=== PATIENT | female | born 1990 | race American Indian/Alaskan Native ===

== ENCOUNTER 2018-12-27 14:36 | Emergency (ER) | payer SELFPAY ==
[2018-12-27 15:55] VITALS: BP 115/80
--- NOTE | 2018-12-27 15:58 | Event Note ---
ED Screening Note Date of service: 12/27/18 Time: 15:54 ED Screening Note: This is a 28 y.o. F. that presents to the ER with abdominal, nausea, and vomiting x 2 months. Reports worsening symptoms for 2 days. LMP 12/18/2018 Patient went to PCP at [facility] 3 weeks ago with copy of pelvic US and labs This initial assessment/diagnostic orders/clinical plan/treatment(s) is/are subject to change based on patients health status, clinical progression and re- assessment by fellow clinical providers in the ED. Further treatment and workup at subsequent clinical providers discretion. Patient/guardian urged not to elope from the ED as their condition may be serious if not clinically assessed and managed. Initial orders include: Labs and CT of abdomen and pelvis.
[2018-12-27 16:49] LABS: Basophils % (Auto) 0.7 % (0.0-1.8); Eosinophils % (Auto) 0.9 % (0.0-4.3); Hematocrit 37.9 % (30.3-42.9); Hemoglobin 12.3 gm/dl (10.1-14.3); Lymphocytes # (Auto) 1.5 K/mm3 (1.2-5.4); Lymphocytes % (Auto) 42.6 % (13.4-35.0); Mean Corpuscular HGB Conc 32 % (30-34); Mean Corpuscular Volume 79 fl (79-97); Monocytes # (Auto) 0.4 K/mm3 (0.0-0.8); Monocytes % (Auto) 10.6 % (0.0-7.3); Platelet Count 139 K/mm3 (140-440); Red Cell Distribution Width 15.2 % (13.2-15.2)
[2018-12-27 16:59] LABS: Bacteria,Urine 1+ /HPF (Negative); Bilirubin,Urine SM (Negative); Blood,Urine SM (Negative); Color,Urine Amber (Yellow); Mucus,Urine 3+ /HPF
[2018-12-27 17:04] LABS: Ictotest,Urine Negative (Negative)
[2018-12-27 17:22] LABS: Alanine Aminotransferase 51 units/L (7-56); Albumin 3.9 g/dL (3.9-5); BUN/Creatinine Ratio 20; Blood Urea Nitrogen 8 mg/dL (7-17); Calcium 9.3 mg/dL (8.4-10.2); Hemolysis Index 5
--- NOTE | 2018-12-27 18:45 | Emergency Department Report ---
<WOOD ANTONIO - Last Filed: 12/27/18 22:15> ED Abdominal Pain HPI - General Chief Complaint: Abdominal Pain Stated Complaint: VOMIT/STOMACH PAIN/LIVER PAIN Time Seen by Provider: 12/27/18 15:54 - Related Data Previous Rx's Medication Instructions Recorded Last Taken Type Ciprofloxacin HCl [Ciprofloxacin 500 mg PO Q12HR 3 Days #6 tab 12/27/18 Unknown Rx TAB] Allergies Allergy/AdvReac Type Severity Reaction Status Date / Time No Known Allergies Allergy Verified 12/27/18 15:53 ED Past Medical Hx - Medications Home Medications: Home Medications Medication Instructions Recorded Confirmed Last Taken Type Ciprofloxacin HCl [Ciprofloxacin 500 mg PO Q12HR 3 Days #6 tab 12/27/18 Unknown Rx TAB] ED Course - Consultations Consultation #1: 12/27/18 22:15 Case discussed with on-call GI doctor H regarding patient's symptoms and CT findings. Suggest that results could be due to chronic alcohol abuse as well versus inherited liver disorder. We will inquired further about patient's alcohol intake history. He recommends Cipro for 3-5 days and outpatient follow- up. Cassie [facility]. ED Medical Decision Making - Lab Data Result diagrams: 12/27/18 16:28 12/27/18 16:28 ED Disposition Clinical Impression: Colitis, Hepatic steatosis, Hepatomegaly, Alcohol abuse Disposition: [id number]-01 TO HOME OR SELFCARE Condition: Stable Instructions: Abdominal Pain (ED), Cirrhosis (ED), Infectious Colitis (ED) Prescriptions: Ciprofloxacin HCl [Ciprofloxacin TAB] 500 mg PO Q12HR 3 Days #6 tab Referrals: PRIMARY CARE, [Primary Care Provider] - 3-5 Days [facility] [Provider Group] - 3-5 Days <ANTON AVILES - Last Filed: 12/27/18 22:25> ED Abdominal Pain HPI - General Source: patient Mode of arrival: Ambulatory Limitations: No Limitations - History of Present Illness Initial Comments: 28-year-old -Gabonese female presents to the emergency room complaining of abdominal pain, nausea vomiting diarrhea 2 months with worsening symptoms in the last 2 days. Patient reports she is currently being evaluated by her primary care provider for liver disease. Patient reports she's had 25 pound weight loss in the last 2-1/2 months. Patient reports that her vomitus is green and her diarrhea is green. She vomited 3 times today with one loose stool. She is 0 para 0 currently takes no medications has no past medical history no known drug allergies. She is followed by [facility]. Patient denies any fever no chills. MD Complaint: abdominal pain Onset/Timin -: month(s) Location: RUQ Radiation: none Migration to: no migration Severity: moderate Severity scale (0 -10): 5 Quality: cramping, stabbing Consistency: intermittent Improves With: nothing Worsens With: nothing Associated Symptoms: nausea, vomiting, diarrhea - Related Data LMP Date: 12/18/18 ED Review of Systems ROS: Stated complaint: VOMIT/STOMACH PAIN/LIVER PAIN Other details as noted in HPI Comment: All other systems reviewed and negative Constitutional: denies: chills, fever ENT: denies: ear pain, throat pain Respiratory: denies: cough, shortness of breath, wheezing Cardiovascular: denies: chest pain, palpitations Endocrine: no symptoms reported Gastrointestinal: abdominal pain, nausea, vomiting, diarrhea Genitourinary: denies: urgency, dysuria, discharge Musculoskeletal: denies: back pain, joint swelling, arthralgia Skin: denies: rash, lesions Neurological: denies: headache, weakness, paresthesias Psychiatric: denies: anxiety, depression Hematological/Lymphatic: denies: easy bleeding, easy bruising ED Past Medical Hx - Past Medical History Previous Medical History?: No - Surgical History Past Surgical History?: No - Social History Smoking Status: Current Every Day Smoker Substance Use Type: Alcohol ED Physical Exam - General Limitations: No Limitations General appearance: alert, in no apparent distress, cachectic - Head Head exam: Present: atraumatic, normocephalic - Eye Eye exam: Present: normal appearance, PERRL - ENT ENT exam: Present: normal orophraynx, mucous membranes moist - Neck Neck exam: Present: normal inspection, full ROM. Absent: tenderness, lymphadenopathy - Respiratory Respiratory exam: Present: normal lung sounds bilaterally. Absent: respiratory distress - Cardiovascular Cardiovascular Exam: Present: regular rate, normal rhythm. Absent: systolic murmur, diastolic murmur, rubs, gallop - GI/Abdominal GI/Abdominal exam: Present: soft, tenderness (ruq). Absent: distended - Back Exam Back exam: Present: normal inspection - Neurological Exam Neurological exam: Present: alert, oriented X3 - Psychiatric Psychiatric exam: Present: normal affect, normal mood - Skin Skin exam: Present: warm, dry, intact, normal color. Absent: rash ED Course Vital Signs 12/27/18 15:53 Temperature 97.5 F L Pulse Rate 85 Respiratory 16 Rate Blood Pressure 115/80 O2 Sat by Pulse 100 Oximetry ED Medical Decision Making - Lab Data Result diagrams: 12/27/18 16:28 12/27/18 16:28 - Radiology Data Radiology results: report reviewed Patient: ELVIS TINEO MR#: [id number] : 1990 Acct:[id number] Age/Sex: 28 / F ADM Date: 12/27/18 Loc: ED Attending Dr: Ordering Physician: OLIVERIO ROSARIO Date of Service: 12/27/18 Procedure(s): CT abdomen pelvis w con Accession Number(s): [id number] cc: OLIVERIO ROSARIO CT ABDOMEN AND PELVIS WITH CONTRAST HISTORY: MAIN: right sided abdominal pain. 100 ML OMNIAPQUE 300. COMPARISON: None. TECHNIQUE: CT images of the abdomen and pelvis were obtained following administration of intravenous contrast. All CT scans at this location are performed using CT dose reduction for ALARA by means of automated exposure control. CONTRAST: 100 ml of intravenous contrast administered. FINDINGS: Lungs/bones: Lung bases are clear. There is no acute osseous abnormality. Abdomen/pelvis: There is severe hepatic steatosis and there is hepatomegaly. The gallbladder, spleen, pancreas, adrenals, kidneys, and proximal GI tract appear unremarkable. Urinary bladder is partially collapsed but otherwise unremarkable. Uterus appears slightly edematous and there is a simple left ovarian cyst measuring approximately 1.6 cm. There is trace simple pelvic free fluid is well. There is circumferential wall thickening and inflammatory stranding along the descending colon. Appendix is normal. IMPRESSION: 1. Descending colitis. No bowel obstruction or perforation. 2. Edematous appearance of the uterus and simple left ovarian cyst--correlate with stage in menstrual cycle. Signer Name: Jassi Sheehan MD Signed: 12/27/2018 7:38 PM Workstation Name: [id number] Transcribed By: LUIS ENRIQUE Dictated By: Jassi Sheehan MD Electronically Authenticated By: Jassi Sheehan MD Signed Date/Time: 12/27/181937 DD/ 34 TD/TT: - Medical Decision Making 28-year-old -Gabonese female presents to the emergency room complaining of abdominal pain, nausea vomiting diarrhea 2 months with worsening symptoms in the last 2 days. Patient reports she is currently being evaluated by her primary care provider for liver disease. Patient reports she's had 25 pound weight loss in the last 2-1/2 months. Patient reports that her vomitus is green and her diarrhea is green. She vomited 3 times today with one loose stool. She is 0 para 0 currently takes no medications has no past medical history no known drug allergies. She is followed by [facility]. Patient denies any fever no chills. Interviewing patient she admits to being a heavy drinker but has cutback. Patient denies any depression suicidal or homicidal ideation. Patient is with her mother who seems to be very supportive. The patient her labs and CT results. Discussed the patient we had consulted gastroenterology and they r ecommended Cipro 500 mg twice a day for 3 days and to follow-up with them. Patient verbalized understanding Critical care attestation.: If time is entered above; I have spent that time in minutes in the direct care of this critically ill patient, excluding procedure time. ED Disposition Is pt being admited?: No
[2018-12-27] MEDS ORDERED: NACL 0.9% 1000 ML 1,000 ML IV ONE (18:46)
[2018-12-27] MEDS ORDERED: ZOFRAN IV ONE (18:46)
--- NOTE | 2018-12-27 19:42 | Cat Scan Report ---
CT ABDOMEN AND PELVIS WITH CONTRAST HISTORY: MAIN: right sided abdominal pain. 100 ML OMNIAPQUE 300. COMPARISON: None. TECHNIQUE: CT images of the abdomen and pelvis were obtained following administration of intravenous contrast. All CT scans at this location are performed using CT dose reduction for ALARA by means of automated exposure control. CONTRAST: 100 ml of intravenous contrast administered. FINDINGS: Lungs/bones: Lung bases are clear. There is no acute osseous abnormality. Abdomen/pelvis: There is severe hepatic steatosis and there is hepatomegaly. The gallbladder, spleen , pancreas, adrenals, kidneys, and proximal GI tract appear unremarkable. Urinary bladder is partially collapsed but otherwise unremarkable. Uterus appears slightly edematous and there is a simple left ovarian cyst measuring approximately 1.6 cm. There is trace simple pelvic free fluid is well. There is circumferential wall thickening and inflammatory stranding along the eloy cending colon. Appendix is normal. IMPRESSION: 1. Descending colitis. No bowel obstruction or perforation. 2. Edematous appearance of the uterus and simple left ovarian cyst--correlate with stage in menstrual cycle. Signer Name: Jassi Sheehan MD Signed: 12/27/2018 7:38 PM Workstation Name: [id number]
[2018-12-27 21:11] LABS: Hepatitis B Surface Antigen Non-Reactive (Negative); Hepatitis C Virus Antibody Non-Reactive (NonReactive)
== END 2018-12-27 22:51 | disposition home or self-care (01) ==
LOC: ED 14:36
DX: K52.9 Noninfective gastroenteritis and colitis, unspecified (principal); K76.0 Fatty (change of) liver, not elsewhere classified; F10.129 Alcohol abuse with intoxication, unspecified
CPT/HCPCS: 36415; 74177; 80053; 80074; 81001; 83690; 84703; 85025; 96361; 96374; 99284; J2405; J7030; Q9967; 87086

== ENCOUNTER 2019-05-22 22:12 | Emergency (ER) | payer SELFPAY ==
[2019-05-23 00:42] LABS: Bilirubin,Urine NEG (Negative); Blood,Urine SM (Negative); Calcium Oxalate Crystals,Urine 3+; Color,Urine Yellow (Yellow); Mucus,Urine 2+ /HPF; Protein,Urine <15 mg/dL mg/dL (Negative); Urobilinogen,Urine < 2.0 mg/dL (<2.0)
[2019-05-23 00:57] LABS: Basophils % (Auto) 0.8 % (0.0-1.8); Eosinophils # (Auto) 0.1 K/mm3 (0.0-0.4); Eosinophils % (Auto) 1.8 % (0.0-4.3); Hemoglobin 9.7 gm/dl (10.1-14.3); Lymphocytes # (Auto) 2.2 K/mm3 (1.2-5.4); Lymphocytes % (Auto) 52.5 % (13.4-35.0); Mean Corpuscular HGB Conc 31 % (30-34); Mean Corpuscular Volume 79 fl (79-97); Monocytes # (Auto) 0.4 K/mm3 (0.0-0.8); Monocytes % (Auto) 9.7 % (0.0-7.3); Platelet Count 215 K/mm3 (140-440); Red Blood Count 3.91 M/mm3 (3.65-5.03); Red Cell Distribution Width 14.1 % (13.2-15.2)
--- NOTE | 2019-05-23 01:54 | Emergency Department Report ---
ED Female HPI - General Chief complaint: Vaginal Bleeding Stated complaint: ABD PAIN/BLEEDING Time Seen by Provider: 05/23/19 01:49 Source: patient Mode of arrival: Ambulatory Limitations: No Limitations - History of Present Illness Initial comments: 29-year-old -Erit[place] female presents to the emergency room for vaginal bleeding 3 weeks. Patient states sometimes she spots entire chest clots. Patient states she uses tampons and pads. Patient's last known menstrual period was 03/15/2019. Patient does report intermittent pelvic cramping. Patient has no past medical history currently takes no medications on a daily basis and has no known drug allergies. MD Complaint: vaginal bleeding Onset/Timin -: week(s) Radiation: suprapubic Severity: mild Quality: cramping Consistency: intermittent Worsens with: none Are you Now?: No Last Menstrual Period: 03/15/19 EDC: 12/20/19 Associated Symptoms: vaginal bleeding. denies: vaginal discharge, abdominal pain, nausea/vomiting, fever/chills - Related Data Previous Rx's Medication Instructions Recorded Last Taken Type Ciprofloxacin HCl [Ciprofloxacin 500 mg PO Q12HR 3 Days #6 tab 12/27/18 Unknown Rx TAB] Nitrofurantoin Surry/M-Cryst 100 mg PO Q12HR 7 Days #14 capsule 05/23/19 Unknown Rx [Macrobid CAP] medroxyPROGESTERone ACETATE 10 mg PO QDAY 10 Days #10 tablet 05/23/19 Unknown Rx [Provera] Allergies Allergy/AdvReac Type Severity Reaction Status Date / Time No Known Allergies Allergy Verified 12/27/18 15:53 ED Review of Systems ROS: Stated complaint: ABD PAIN/BLEEDING Other details as noted in HPI ED Past Medical Hx - Past Medical History Previous Medical History?: No - Surgical History Past Surgical History?: No - Social History Smoking Status: Current Every Day Smoker Substance Use Type: Alcohol, Marijuana - Medications Home Medications: Home Medications Medication Instructions Recorded Confirmed Last Taken Type Ciprofloxacin HCl [Ciprofloxacin 500 mg PO Q12HR 3 Days #6 tab 12/27/18 Unknown Rx TAB] Nitrofurantoin Surry/M-Cryst 100 mg PO Q12HR 7 Days #14 capsule 05/23/19 Unknown Rx [Macrobid CAP] medroxyPROGESTERone ACETATE 10 mg PO QDAY 10 Days #10 tablet 05/23/19 Unknown Rx [Provera] ED Physical Exam - General Limitations: No Limitations General appearance: alert, in no apparent distress - Head Head exam: Present: atraumatic, normocephalic - Eye Eye exam: Present: normal appearance - ENT ENT exam: Present: mucous membranes moist - Neck Neck exam: Present: normal inspection - Respiratory Respiratory exam: Present: normal lung sounds bilaterally. Absent: respiratory distress - Cardiovascular Cardiovascular Exam: Present: regular rate, normal rhythm. Absent: systolic murmur, diastolic murmur, rubs, gallop - GI/Abdominal GI/Abdominal exam: Present: soft, normal bowel sounds - Extremities Exam Extremities exam: Present: normal inspection - Back Exam Back exam: Present: normal inspection - Neurological Exam Neurological exam: Present: alert, oriented X3 - Psychiatric Psychiatric exam: Present: normal affect, normal mood - Skin Skin exam: Present: warm, dry, intact, normal color. Absent: rash ED Course Vital Signs 05/22/19 22:15 Temperature 97.7 F Pulse Rate 92 H Respiratory 13 Rate Blood Pressure 146/99 O2 Sat by Pulse 100 Oximetry ED Medical Decision Making - Lab Data Result diagrams: 05/23/19 00:27 - Medical Decision Making 29-year-old -Eritre[place] female presents to the emergency room for vaginal bleeding 3 weeks. Patient states sometimes she spots entire chest clots. Patient states she uses tampons and pads. Patient's last known menstrual period was 03/15/2019. Patient does report intermittent pelvic cramping. Patient has no past medical history currently takes no medications on a daily basis and has no known drug allergies. Patient has positive nitrates in her urine will be placed on Macrobid. Patient be placed on Provera for 10 days for dysfunctional uterine bleeding. Patient be referred to [facility]. Patient has a stable CBC and CMP. Critical care attestation.: If time is entered above; I have spent that time in minutes in the direct care of this critically ill patient, excluding procedure time. ED Disposition Clinical Impression: Dysfunctional or functional uterine hemorrhage, Urinary tract infection Disposition: TO HOME OR SELFCARE Is pt being admited?: No Does the pt Need Aspirin: No Condition: Stable Instructions: Dysfunctional Uterine Bleeding (ED), Urinary Tract Infection in Women (ED) Additional Instructions: Follow-up with the [facility] provider. Prescriptions: Nitrofurantoin Surry/M-Cryst [Macrobid CAP] 100 mg PO Q12HR 7 Days #14 capsule medroxyPROGESTERone ACETATE [Provera] 10 mg PO QDAY 10 Days #10 tablet Referrals: THOMAS MOSES MD [Primary Care Provider] - 3-5 Days [facility] [Provider Group] - 3-5 Days
[2019-05-23 02:17] VITALS: BP 140/80
== END 2019-05-23 02:16 | disposition home or self-care (01) ==
LOC: ED 22:12
DX: N93.9 Abnormal uterine and vaginal bleeding, unspecified (principal); N39.0 Urinary tract infection, site not specified; F17.200 Nicotine dependence, unspecified, uncomplicated; F10.10 Alcohol abuse, uncomplicated; F12.10 Cannabis abuse, uncomplicated; Z79.899 Other long term (current) drug therapy
CPT/HCPCS: 36415; 81001; 84702; 84703; 85025; 86900; 86901